=== PATIENT | male | born 1965 | race American Indian/Alaskan Native ===

== ENCOUNTER 2016-12-31 07:38 | Emergency (ER) | payer OTHER ==
[2016-12-31 08:25] LABS: Hematocrit 41.6 % (35.5-45.6); Hemoglobin 13.8 gm/dl (11.8-15.2); Mean Corpuscular HGB Conc 33 % (32-34); Mean Corpuscular Hemoglobin 29 pg (28-32); Mean Corpuscular Volume 87 fl (84-94); Platelet Count 201 K/mm3 (140-440); Red Blood Count 4.81 M/mm3 (3.65-5.03); Red Cell Distribution Width 13.6 % (13.2-15.2); White Blood Count 5.9 K/mm3 (4.5-11.0)
[2016-12-31 08:40] LABS: Alanine Aminotransferase 20 units/L (7-56); Albumin/Globulin Ratio 1.1 %; Alkaline Phosphatase 61 units/L (35-129); Anion Gap 15 mmol/L; BUN/Creatinine Ratio 6.36; Blood Urea Nitrogen 7 mg/dL (9-20); Calcium 9.5 mg/dL (8.4-10.2); Carbon Dioxide 27 mmol/L (22-30); Chloride 100.6 mmol/L (98-107); Glucose 97 mg/dL (75-100); Potassium 4.3 mmol/L (3.6-5.0); Sodium 138 mmol/L (137-145); Total Protein 7.8 g/dL (6.3-8.2)
[2016-12-31 08:48] LABS: Bilirubin,Direct < 0.2 mg/dL (0-0.2)
[2016-12-31 11:47] VITALS: BP 125/86
--- NOTE | 2016-12-31 11:57 | Emergency Department Report ---
ED Dizziness HPI - General Chief Complaint: Dizziness Stated Complaint: DIZZINESS Time Seen by Provider: 12/31/16 11:56 Source: patient Mode of arrival: Ambulatory Limitations: No Limitations - History of Present Illness MD Complaint: dizziness, lightheadedness -: Gradual Timing: gradual onset Description: sense of movement, "room spinning", lightheadedness History of Same: No History of Trauma: No Severity: mild Improves With: nothing Worsens With: nothing Associated Symptoms: denies: ataxia, chest pain, confusion, cough, diaphoresis, fever/chills, loss of appetite - Related Data Home Medications Medication Instructions Recorded Confirmed Last Taken Emtricitabin/Tenofovir [TRUVADA 1 tab PO QDAY 03/31/13 03/31/13 03/30/13 200-300 mg] [facility] 03/31/13 03/31/13 03/30/13 Previous Rx's Medication Instructions Recorded Last Taken Type Penicillin Vk [Veetids TAB] 250 mg PO QID #40 tablet 03/31/13 Unknown Rx Allergies Allergy/AdvReac Type Severity Reaction Status Date / Time No Known Allergies Allergy Unverified 03/31/13 07:29 ED Review of Systems ROS: Stated complaint: DIZZINESS Other details as noted in HPI Comment: All other systems reviewed and negative ED Past Medical Hx - Past Medical History Previous Medical History?: Yes Hx HIV: Yes - Surgical History Past Surgical History?: No - Social History Smoking Status: Never Smoker Substance Use Type: Alcohol - Medications Home Medications: Home Medications Medication Instructions Recorded Confirmed Last Taken Type Emtricitabin/Tenofovir [TRUVADA 1 tab PO QDAY 03/31/13 03/31/13 03/30/13 History 200-300 mg] [facility] 03/31/13 03/31/13 03/30/13 History Penicillin Vk [Veetids TAB] 250 mg PO QID #40 tablet 03/31/13 Unknown Rx ED Physical Exam - General Limitations: No Limitations General appearance: alert, in no apparent distress - Head Head exam: Present: atraumatic, normocephalic - Eye Eye exam: Present: normal appearance - ENT ENT exam: Present: mucous membranes moist - Neck Neck exam: Present: normal inspection - Respiratory Respiratory exam: Present: normal lung sounds bilaterally. Absent: respiratory distress - Cardiovascular Cardiovascular Exam: Present: regular rate, normal rhythm. Absent: systolic murmur, diastolic murmur, rubs, gallop - GI/Abdominal GI/Abdominal exam: Present: soft, normal bowel sounds - Rectal Rectal exam: Present: deferred - Extremities Exam Extremities exam: Present: normal inspection - Back Exam Back exam: Present: normal inspection - Neurological Exam Neurological exam: Present: alert, oriented X3 - Psychiatric Psychiatric exam: Present: normal affect, normal mood - Skin Skin exam: Present: warm, dry, intact, normal color. Absent: rash ED Course Vital Signs 12/31/16 12/31/16 12/31/16 08:05 11:47 12:32 Temperature 98.5 F Pulse Rate 68 63 Respiratory 16 16 16 Rate Blood Pressure 114/79 Blood Pressure 125/86 [Right] O2 Sat by Pulse 100 100 100 Oximetry ED Medical Decision Making - Lab Data Result diagrams: 12/31/16 08:17 12/31/16 08:17 - EKG Data When compared to previous EKG there are: no significant change Interpretation: no acute changes - Medical Decision Making patient doing well no symptoms at this time , ekg and labs negative Critical care attestation.: If time is entered above; I have spent that time in minutes in the direct care of this critically ill patient, excluding procedure time. ED Disposition Clinical Impression: Dizziness Disposition: DC-01 TO HOME OR SELFCARE Is pt being admited?: No Does the pt Need Aspirin: No Condition: Stable Instructions: Lightheadedness (ED), Dizziness (ED) Time of Disposition: 12:48
== END 2016-12-31 13:15 | disposition home or self-care (01) ==
LOC: ED 07:38
DX: R42 Dizziness and giddiness (principal)
CPT/HCPCS: 36415; 80048; 80074; 83735; 85027; 93005; 93010; 99283

== ENCOUNTER 2021-07-15 17:16 | Emergency (ER) | payer SELFPAY ==
[2021-07-15] MEDS ORDERED: IBUPROFEN 800 MG TAB PO STA (19:56)
[2021-07-15] MEDS ORDERED: ACETAMINOPHEN 500 MG TAB PO STA (19:56)
--- NOTE | 2021-07-15 20:22 | Emergency Department Report ---
ED General Adult HPI - General Chief complaint: Sore Throat Stated complaint: ST X 3 DAYS Time Seen by Provider: 07/15/21 19:06 Source: patient Mode of arrival: Ambulatory Limitations: No Limitations - History of Present Illness Initial comments: 55-year-old -[place] male patient presents with complaints of sore throat and painful swallowing x4 days. He states a history of recurrent strep pharyngitis and reports his symptoms feel similar to his past infections. He denies any difficulty opening his jaw, cough, congestion, recent known sick contacts, loss of taste or smell, chest pain, or shortness of breath or rash. He rates his current pain as a 9/10 in severity. He states his pain has not improved with NyQuil. Last medical history includes HIV. Patient states he is compliant on ART. He states his viral load was checked 1 week ago and he is undetectable Severity scale (0 -10): 8 - Related Data Home Medications Medication Instructions Recorded Confirmed Last Taken Emtricitabin/Tenofovir [TRUVADA 1 tab PO QDAY 03/31/13 03/31/13 03/30/13 200-300 mg] [facility] 03/31/13 03/31/13 03/30/13 Previous Rx's Medication Instructions Recorded Last Taken Type Penicillin Vk [Veetids TAB] 250 mg PO QID #40 tablet 03/31/13 Unknown Rx Amoxicillin [Trimox CAP] 500 mg PO BID 10 Days #20 capsule 07/15/21 Unknown Rx Ibuprofen [Motrin 800 MG tab] 800 mg PO Q8HR PRN #20 tablet 07/15/21 Unknown Rx Allergies Allergy/AdvReac Type Severity Reaction Status Date / Time No Known Allergies Allergy Unverified 03/31/13 07:29 ED Review of Systems ROS: Stated complaint: ST X 3 DAYS Other details as noted in HPI Constitutional: chills, malaise. denies: diaphoresis, fever ENT: throat pain Respiratory: denies: cough, shortness of breath Cardiovascular: denies: chest pain Gastrointestinal: denies: nausea, vomiting Skin: denies: rash, lesions Hematological/Lymphatic: denies: swollen glands ED Past Medical Hx - Past Medical History Hx HIV: Yes - Social History Smoking Status: Never Smoker Substance Use Type: Alcohol - Medications Home Medications: Home Medications Medication Instructions Recorded Confirmed Last Taken Type Emtricitabin/Tenofovir [TRUVADA 1 tab PO QDAY 03/31/13 03/31/13 03/30/13 History 200-300 mg] [facility] 03/31/13 03/31/13 03/30/13 History Penicillin Vk [Veetids TAB] 250 mg PO QID #40 tablet 03/31/13 Unknown Rx Amoxicillin [Trimox CAP] 500 mg PO BID 10 Days #20 capsule 07/15/21 Unknown Rx Ibuprofen [Motrin 800 MG tab] 800 mg PO Q8HR PRN #20 tablet 07/15/21 Unknown Rx ED Physical Exam - General Limitations: No Limitations General appearance: alert, in no apparent distress - Head Head exam: Present: atraumatic, normocephalic - Eye Eye exam: Present: normal appearance - Expanded ENT Exam Expanded Mouth exam: Absent: drooling, trismus, muffled voice Throat exam: Positive: tonsillar erythema (Bilateral), tonsillar exudate, other (Uvula is midline). Negative: tonsillomegaly, R peritonsillar mass (Bilateral), L peritonsillar mass - Neck Neck exam: Present: full ROM, lymphadenopathy (Mild submandibular) - Respiratory Respiratory exam: Present: normal lung sounds bilaterally. Absent: respiratory distress - Cardiovascular Cardiovascular Exam: Present: normal rhythm, tachycardia (Mild) - Neurological Exam Neurological exam: Present: alert, oriented X3 - Psychiatric Psychiatric exam: Present: normal affect, normal mood - Skin Skin exam: Present: warm, dry, intact, normal color. Absent: rash ED Course Vital Signs 07/15/21 07/15/21 07/15/21 18:33 20:56 20:58 Temperature 102.9 F H 102.2 F H Pulse Rate 119 H 98 H Respiratory 18 18 Rate Blood Pressure 128/89 O2 Sat by Pulse 98 98 Oximetry ED Medical Decision Making - Medical Decision Making 55-year-old -[place] male patient presents with complaints of sore throat and painful swallowing x4 days. He states a history of recurrent strep pharyngitis and reports his symptoms feel similar to his past infections. He denies any difficulty opening his jaw, cough, congestion, recent known sick contacts, loss of taste or smell, chest pain, or shortness of breath or rash. He rates his current pain as a 9/10 in severity. He states his pain has not improved with NyQuil. Last medical history includes HIV. Patient states he is compliant on ART. He states his viral load was checked 1 week ago and he is undetectable We will treat empirically for strep pharyngitis given history and bilateral erythema of the tonsils noted on exam with mild exudate. Patient given Tylenol and ibuprofen heart rate improved to 98 temp now 102.2. Discussed in detail signs and symptoms that should prompt immediate return to the ED with patient who verbalizes understanding. He is nontoxic-appearing and stable for discharge home. Patient to follow-up with his primary care doctor in 3 to 5 days Critical care attestation.: If time is entered above; I have spent that time in minutes in the direct care of this critically ill patient, excluding procedure time. ED Disposition Clinical Impression: Acute bacterial pharyngitis Disposition: 01 HOME / SELF CARE / HOMELESS Is pt being admited?: No Condition: Stable Instructions: Strep Throat, Adult Prescriptions: Ibuprofen [Motrin 800 MG tab] 800 mg PO Q8HR PRN #20 tablet PRN Reason: pain/fever Amoxicillin [Trimox CAP] 500 mg PO BID 10 Days #20 capsule Referrals: PRIMARY CARE, [Referring] - 3-5 Days Forms: Work/School Release Form(ED)
[2021-07-15 21:04] VITALS: BP 113/53
== END 2021-07-15 19:50 | disposition home or self-care (01) ==
LOC: ED 17:16
DX: J02.9 Acute pharyngitis, unspecified (principal)
CPT/HCPCS: 99282

== ENCOUNTER 2022-03-28 13:36 | Emergency (ER) | payer SELFPAY ==
[2022-03-28 15:00] VITALS: BP 140/93
--- NOTE | 2022-03-28 20:12 | Emergency Department Report ---
ED ENT HPI - General Chief complaint: Sore Throat Stated complaint: THROAT SORE Time Seen by Provider: 03/28/22 20:03 Source: patient Mode of arrival: Ambulatory Limitations: No Limitations - History of Present Illness Initial comments: Patient is a 56-year-old male who presents stating that he has "strep throat." He has had no known exposure to same but has had a sore throat for the last 3 days as well as rhinorrhea cough subjective fever at onset as well as headache and fatigue on the first day. That has all improved and now he just has the sore throat runny nose and cough. No known ill contacts. He denies any dysphagia. MD complaint: sore throat Severity scale (0 -10): 4 Consistency: constant Improves with: none Worsens with: swallowing, eating Associated Symptoms: fever (At onset), cough, pain with swallowing, rhinorrhea. denies: toothache, tinnitus, discharge from ear - Related Data Home Medications Medication Instructions Recorded Confirmed Last Taken Emtricitabin/Tenofovir [TRUVADA 1 tab PO QDAY 03/31/13 03/31/13 03/30/13 200-300 mg] [facility] 03/31/13 03/31/13 03/30/13 Previous Rx's Medication Instructions Recorded Last Taken Type Penicillin Vk [Veetids TAB] 250 mg PO QID #40 tablet 03/31/13 Unknown Rx Amoxicillin [Trimox CAP] 500 mg PO BID 10 Days #20 capsule 07/15/21 Unknown Rx Ibuprofen [Motrin 800 MG tab] 800 mg PO Q8HR PRN #20 tablet 07/15/21 Unknown Rx Allergies Allergy/AdvReac Type Severity Reaction Status Date / Time No Known Allergies Allergy Unverified 03/31/13 07:29 ED Dental HPI - General Chief complaint: Sore Throat Stated complaint: THROAT SORE Time Seen by Provider: 03/28/22 20:03 Source: patient Mode of arrival: Ambulatory Limitations: No Limitations - Related Data Home Medications Medication Instructions Recorded Confirmed Last Taken Emtricitabin/Tenofovir [TRUVADA 1 tab PO QDAY 03/31/13 03/31/13 03/30/13 200-300 mg] [facility] 03/31/13 03/31/13 03/30/13 Previous Rx's Medication Instructions Recorded Last Taken Type Penicillin Vk [Veetids TAB] 250 mg PO QID #40 tablet 03/31/13 Unknown Rx Amoxicillin [Trimox CAP] 500 mg PO BID 10 Days #20 capsule 07/15/21 Unknown Rx Ibuprofen [Motrin 800 MG tab] 800 mg PO Q8HR PRN #20 tablet 07/15/21 Unknown Rx Allergies Allergy/AdvReac Type Severity Reaction Status Date / Time No Known Allergies Allergy Unverified 03/31/13 07:29 ED Review of Systems ROS: Stated complaint: THROAT SORE Other details as noted in HPI Comment: All other systems reviewed and negative Constitutional: fever (At onset). denies: chills Eyes: denies: eye discharge ENT: as per HPI Respiratory: see HPI. denies: shortness of breath Cardiovascular: denies: chest pain, palpitations, edema Endocrine: denies: intolerance to cold, intolerance to heat Gastrointestinal: denies: abdominal pain, nausea, vomiting, diarrhea Genitourinary: denies: urgency, dysuria, frequency Musculoskeletal: denies: joint swelling, myalgia Skin: denies: rash Neurological: denies: headache, numbness, paresthesias Psychiatric: denies: anxiety, depression Hematological/Lymphatic: denies: easy bleeding, easy bruising ED Past Medical Hx - Past Medical History Hx HIV: Yes - Surgical History Past Surgical History?: No - Family History Family history: no significant - Social History Smoking Status: Never Smoker Substance Use Type: Alcohol - Medications Home Medications: Home Medications Medication Instructions Recorded Confirmed Last Taken Type Emtricitabin/Tenofovir [TRUVADA 1 tab PO QDAY 03/31/13 03/31/13 03/30/13 History 200-300 mg] [facility] 03/31/13 03/31/13 03/30/13 History Penicillin Vk [Veetids TAB] 250 mg PO QID #40 tablet 03/31/13 Unknown Rx Amoxicillin [Trimox CAP] 500 mg PO BID 10 Days #20 capsule 07/15/21 Unknown Rx Ibuprofen [Motrin 800 MG tab] 800 mg PO Q8HR PRN #20 tablet 07/15/21 Unknown Rx ED Physical Exam - General Limitations: No Limitations General appearance: alert, in no apparent distress - Head Head exam: Present: atraumatic, normocephalic - Eye Eye exam: Present: normal appearance. Absent: scleral icterus, conjunctival injection - ENT ENT exam: Present: mucous membranes moist, TM's normal bilaterally, other (Throat injected without erythema or exudate or tonsillar enlargement. Bilateral turbinate edema) - Neck Neck exam: Present: normal inspection, full ROM. Absent: tenderness, meningismus - Respiratory Respiratory exam: Present: normal lung sounds bilaterally. Absent: respiratory distress, wheezes, rales, rhonchi - Cardiovascular Cardiovascular Exam: Present: regular rate, normal rhythm, normal heart sounds - GI/Abdominal GI/Abdominal exam: Present: soft. Absent: distended, tenderness - Neurological Exam Neurological exam: Present: alert, oriented X3, CN II-XII intact, normal gait - Psychiatric Psychiatric exam: Present: normal affect, normal mood - Skin Skin exam: Present: warm, dry, intact. Absent: rash ED Course Vital Signs 03/28/22 14:59 Temperature 98.4 F Pulse Rate 69 Respiratory 20 Rate Blood Pressure 140/93 O2 Sat by Pulse 98 Oximetry - Reevaluation(s) Reevaluation #1: 03/28/22 21:48 Strep screen negativeculture sent, but likely viral given cough and rhinorrhea as well as constitutional symptoms on set. ED Medical Decision Making - Medical Decision Making Strep screen negativeculture sent, but likely viral given cough and rhinorrhea as well as constitutional symptoms on set. Recommend COVID test at home. Warm salt water gargles. Warm compresses to the sinuses and nasal saline. Ibuprofen or Tylenol as needed for fever or pain. If COVID-positive recommend purchasing pulse oximeter to monitor and return if any pulse ox less than 90%. Critical care attestation.: If time is entered above; I have spent that time in minutes in the direct care of this critically ill patient, excluding procedure time. ED Disposition Clinical Impression: URI (upper respiratory infection), Viral syndrome Disposition: HOME / SELF CARE / HOMELESS Is pt being admited?: No Condition: Stable Instructions: Viral Respiratory Infection, Fazn-Ag-Futy, Sore Throat Additional Instructions: Strep screen negativeculture sent, but likely viral given cough and rhinorrhea as well as constitutional symptoms on set. Recommend COVID test at home. Guaifenesin 1200 mg extended release twice daily. Warm salt water gargles. Warm compresses to the sinuses and nasal saline. Ibuprofen or Tylenol as needed for fever or pain. If COVID-positive recommend purchasing pulse oximeter to monitor and return if any pulse ox less than 90%. Follow-up primary care doctor this week. Forms: Work/School Release Form(ED) Time of Disposition: 21:53
[2022-03-28] MEDS ORDERED: IBUPROFEN 600 MG TAB PO ONE (20:13)
== END 2022-03-28 22:20 | disposition home or self-care (01) ==
LOC: ED 13:36
DX: B34.9 Viral infection, unspecified (principal); J06.9 Acute upper respiratory infection, unspecified; Z21 Asymptomatic human immunodeficiency virus [HIV] infection status; Z79.899 Other long term (current) drug therapy
CPT/HCPCS: 87116; 87430; 99283